=== PATIENT | male | born 1975 | race Native Hawaiian/Other Pacific Islander ===

== ENCOUNTER 2023-08-07 09:09 | Emergency (ER) | payer BC ==
--- NOTE | 2023-08-07 10:00 | XR ---
EXAMINATION TYPE: XR ribs LT w pa chest xray, 5 views DATE OF EXAM: 08/07/2023 Comparison: None Clinical History: 47-year-old male left-sided pain Findings: Heart normal size. Aorta and pulmonary vasculature within normal limits. Strandy atelectasis at the l eft base. No consolidation, pneumothorax, or pleural effusion. Slight cortical irregularity involving the left anterior ninth and 10th ribs. Otherwise, no displaced left rib fracture seen. Impression: 1. Possible subtle nondisplaced fractures of the left anterior ninth and 10th ribs. 2. Strandy atelectasis at the left base. Otherwise, no acute process seen.
[2023-08-07] MEDS: DIPH,PERTUS(ACELL)TETVAC-LF 0.5 ML VIAL IM ONE (10:02)
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
[2023-08-07 11:43] VITALS: BP 137/83; PULSE 81; RESP 16; TEMP 98
== END 2023-08-07 11:10 | disposition home or self-care (01) ==
LOC: EC 09:09
DX: S22.42XA Multiple fractures of ribs, left side, initial encounter for closed fracture (principal); Z23 Encounter for immunization; V89.2XXA Person injured in unspecified motor-vehicle accident, traffic, initial encounter; Y92.410 Unspecified street and highway as the place of occurrence of the external cause
CPT/HCPCS: 90471; 90715; 99284